=== PATIENT | male | born 1975 | race Caucasian/White ===

== ENCOUNTER 2018-12-29 15:49 | Outpatient (REF) | payer OTHER, SELFPAY ==
[2018-12-29 16:53] LABS: ALT 39 U/L (12-78); AST 18 U/L (15-37)
[2018-12-30 18:33] LABS: Cholesterol 231 mg/dL (50-200); HDL Cholesterol 63 mg/dL (40-60); LDL CHOLESTEROL 148 mg/dL (<100); Triglyceride 76 mg/dL (30-150)
[2019-01-01 11:40] LABS: Glucose 97 mg/dL (70-100)
== END 2018-12-29 16:09 ==
LOC: NCHCN 15:49
PROVIDERS: PCP Internal Medicine; Visit Provider Nurse Practitioner Family
DX: Z00.00 Encounter for general adult medical examination without abnormal findings (principal); Z13.220 Encounter for screening for lipoid disorders
CPT/HCPCS: 36415; 80061; 82947; 83721; 84450; 84460